=== PATIENT | female | born 1985 | race Caucasian/White ===

== ENCOUNTER 2018-11-01 23:29 | Emergency (ER) | payer SELFPAY ==
[2018-11-02] MEDS ORDERED: ACETAMINOPHEN 325 MG TABLET ONE (01:04)
[2018-11-02] MEDS ORDERED: HYDROCODONE/APAP 5/325 MG TAB ONE (01:04)
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
[2018-11-02 03:25] VITALS: O2SAT 99
[2018-11-02 03:27] VITALS: BP 111/78; TEMP 97.5
--- NOTE | 2018-11-02 11:21 | RAD REPORT ---
EXAM DESCRIPTION: Head C Spine Mpr Wo Con CLINICAL HISTORY: Head injury COMPARISON: None. TECHNIQUE: CT HEAD NECK WITHOUT IV CONTRAST on 11/02/2018 12:12 AM CDT This exam was performed according to our departmental dose-optimization program, which includes autom ated exposure control, adjustment of the mA and/or kV according to patient size and/or use of iterati ve reconstruction technique. FINDINGS: There is no acute hemorrhage, mass effect or midline shift. Guerra-white differentiation is preserved. There is no hydrocephalus. There is no significant volume loss for age. There is a posteri or left parietal scalp contusion. The calvarium is intact. Orbits and globes are unremarkable. The paranasal sinuses are clear. Mastoid air cells are clear. There is no acute fracture. Alignment is anatomic. Disc spaces are maintained. Vertebral body heights are preserved. Soft tissues are unremarkable. IMPRESSION: Left parietal scalp contusion without fracture or hemorrhage. Electronically signed by: Davie Lopez MD 11/02/2018 12:57 AM CDT Due to temporary technical issues with the PACS/Fluency reporting system, reports are being signed by the in house radiologist as a courtesy to ensure prompt reporting. The interpreting radiologist is f ully responsible for the content of the report.
== END 2018-11-02 01:44 | disposition home or self-care (01) ==
LOC: ER 23:29
DX: S00.03XA Contusion of scalp, initial encounter (principal); Y04.8XXA Assault by other bodily force, initial encounter; R51 Headache; F41.9 Anxiety disorder, unspecified; F31.9 Bipolar disorder, unspecified; Z72.0 Tobacco use
CPT/HCPCS: 70450; 72125; 99283

== ENCOUNTER 2018-11-12 22:02 | Emergency (ER) | payer OTHER, SELFPAY ==
--- OUTSIDE RECORDS SUMMARY | 2018-11-12 22:04 | XMS REPORT ---
:1985 [facility] Address [address] [place] [address] Care Team Providers Name Role Phone PROVIDER, ED TEMP Unavailable Unavailable David Lr Unavailable Unavailable Problems This patient has no known problems. Allergies, Adverse Reactions, Alerts This patient has no known allergies or adverse reactions. Medications This patient has no known medications. Encounters Start End Encounter Admission Attending Care Care Encounter Date/Time Date/Time Type Type Clinicians Facility Department ID 2018-09-07 2018-09-07 Emergency E [facility] [id number] 11:28:00 11:28:00 Results Test Description Test Time Test Comments Text Results Atomic Results Result Comments Chemistry 2018-04-23 17:59:00 Test Item Value Reference Range Comments Chemistry (test Less than 0.010 < 0.028 Reference code=TROPI-R) ng/mL Range 0.00 - 0.028 ng/mL Negative 0.029 - 0.29 ng/mL Indeterminate Greater or Equal to 0.3 ng/mL Strongly suggests ME [id number] 17:57:00 Test Item Value Reference Range Comments Chemistry (test 140 mmol/L 136-145 code=NA-T) Chemistry (test code=K-T) 4.1 mmol/L 3.5-5.1 Chemistry (test code=CL) 104 mmol/L 98-107 Chemistry (test code=CO2) 28 mmol/L 22-29 Chemistry (test 12 mmol/L 10-20 code=ANGP) Chemistry (test code=BUN) 9 mg/dL 7.0-18.7 Chemistry (test 0.73 mg/dL 0.6-1.1 code=CREATT) Chemistry (test Greater than 90 Reference Range for code=EGFRMDRD) Estimated GFR: Greater than 90 mL/min/1.73 m2NOTE:The MDRD equation has not been validated for use with theelderly (over 70 years of age), women, patientswith serious comorbid condition or persons with extremes ofbody size, muscle mass, or nutritional status. Chemistry (test 90 mg/dL 70-105 code=GLU-T) Chemistry (test code=CA) 9.0 mg/dL 7.8-10.44 Chemistry (test 0.3 mg/dL 0.2-1.2 code=TBILI) Chemistry (test code=TP) 6.9 g/dL 6.0-8.3 Chemistry (test code=ALB) 4.3 g/dL 3.5-5.0 Chemistry (test 2.6 g/dL 2.4-3.5 code=GLOB) Chemistry (test code=AG) 1.7 g/dL 1.2-2.2 Chemistry (test code=ALP) 88 U/L 40-150 Chemistry (test code=AST) 18 U/L 5-34 Chemistry (test code=ALT) 21 U/L 8-55 [id number] 17:57:00 Test Item Value Reference Range Comments Chemistry (test code=CK) 89 U/L 29-168 [id number] 17:33:00 Test Item Value Reference Range Comments Hematology (test code=WBCT) 11.0 thou/uL 4.8-10.8 Hematology (test code=RBCT) 4.50 mill/uL 4.20-5.40 Hematology (test code=HGBT) 10.9 g/dL 12.0-16.0 Hematology (test code=HCTT) 35.0 % 36.0-47.0 Hematology (test code=MCV) 77.9 fL 78.0-98.0 Hematology (test code=MCH) 24.2 pg 27.0-31.0 Hematology (test code=MCHC) 31.1 g/dL 32.0-36.0 Hematology (test code=RDW) 14.5 % 11.5-14.5 Hematology (test code=PLTT) 248 thou/uL 130-400 Hematology (test code=MPV) 9.0 fL 7.4-10.4 Hematology (test code=%NEUT) 72.7 % 42.0-75.0 Hematology (test code=%LYMPH) 20.1 % 21.0-51.0 Hematology (test code=%MONO) 5.7 % 0.0-10.0 Hematology (test code=%EOS) 0.9 % 0.0-10.0 Hematology (test code=%BASO) 0.7 % 0.0-1.0 Hematology (test code=NEUT#) 8.0 thou/uL 1.40-6.50 Hematology (test code=LYMPH#) 2.2 thou/uL 1.20-3.40 Hematology (test code=MONO#) 0.6 thou/uL 0.11-0.59 Hematology (test code=EOS#) 0.1 thou/uL 0.0-0.7 Hematology (test code=BASO#) 0.1 thou/uL 0.0-0.2 Influenza A B Ag [id number] 17:11:00 Test Item Value Reference Range Comments Influenza A B Ag Screen (test The rapid Flu A B test can code=FLU) distinguish between influenza A Influenza A B Ag Screen (test follow up confirmatory testing code=FLU1) is warranted. Influenza A B Ag Screen (test FLUB code=FLU1) Influenza A B Ag Screen (test N code=FLU1) [id number] 13:27:00 Test Item Value Reference Range Comments Chemistry (test code=PROLAC) 13.78 ng/mL 5.18-26.53 Chemistry - [id number] 00:21:00 Test Item Value Reference Range Comments Chemistry - Specials (test code=TSH3) 4.4333 uIU/mL 0.35-4.94 Chemistry - [id number] 00:21:00 Test Item Value Reference Range Comments Chemistry - Specials (test Negative NEGATIVE Method of sensitivity- code=BHCGST) Indeterminant: results should be repeated after 48-72 hrs Positive: results may be detected as early as 1 day after the first missed menses.
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
[2018-11-13 00:59] VITALS: BP 121/90; TEMP 97.1; O2SAT 98
== END 2018-11-12 23:17 | disposition home or self-care (01) ==
LOC: ER 22:02
DX: H57.89 Other specified disorders of eye and adnexa (principal); Z77.098 Contact with and (suspected) exposure to other hazardous, chiefly nonmedicinal, chemicals; F41.9 Anxiety disorder, unspecified; F31.9 Bipolar disorder, unspecified; Z88.0 Allergy status to penicillin; Z72.0 Tobacco use
CPT/HCPCS: 99281